=== PATIENT | female | born 1940 | race Caucasian/White ===

== ENCOUNTER 2021-04-04 14:10 | Inpatient (IN) | payer MEDICARE, OTHER ==
[2021-04-04] MEDS ORDERED: Ondansetron 4 MG/2 ML SDV IVPUSH ONE (14:23)
[2021-04-04] MEDS ORDERED: fentaNYL 50 MCG/ML SDV IVPUSH ONE (14:23)
[2021-04-04] MEDS ORDERED: Sodium Chloride 0.9% 1,000 ML IV ONE (14:23)
[2021-04-04] MEDS ORDERED: Sodium Chloride 0.9% 10 ML Syringe FLUSH PRN (14:23)
--- NOTE | 2021-04-04 14:30 | EDM.PDOC ---
ED HPI GENERAL MEDICAL PROBLEM - General Source of Information: Reports: Patient, Provider Middle Abdomen Pain Score (Numeric/FACES): 5 <Mili Richardson - Last Filed: 04/04/21 15:13> <Ana Maria Palafox - Last Filed: 04/04/21 17:16> - General Chief Complaint: Abdominal Pain Time Seen by Provider: 04/04/21 14:18 - History of Present Illness INITIAL COMMENTS - FREE TEXT/NARRATIVE: Maria E is a 80 y/o lady who was seen by Dr Tyson yesterday and today at [facility] and she was sent to the ER with persistent abdominal pain. Lans were negative yesterday in the clinic and an abdominal xray was also negative for any obstructive pattern. She started to feel ill Saturday night with diffuse abdominal pain, then she started have nausea and vomiting. Vomitus is more of a clear frothy substance. Not realyl eating much, only been drinking sips of water. She is starting to feel very weak. Had a small BM Saturday. Describes the pain as a "burning" and rates it 5/10 at this time. No fever. (Mili Richardson) - Related Data Allergies Allergy/AdvReac Type Severity Reaction Status Date / Time Penicillins Allergy Edema Verified 04/04/21 14:24 varenicline tartrate Allergy Nausea Verified 04/04/21 14:24 [From Chantix] Home Meds: Home Meds Albuterol [Ventolin HFA] 2 puff INH Q4H PRN 07/09/13 [History] Atenolol [Tenormin] 50 mg PO DAILY 07/09/13 [History] Cholecalciferol (Vitamin D3) [Vitamin D] 2,000 unit PO DAILY 07/09/13 [History] Cyanocobalamin (Vitamin B-12) [Vitamin B-12] 2,000 mcg PO DAILY 07/09/13 [History] Simvastatin [Zocor] 40 mg PO BEDTIME 07/09/13 [History] Psyllium Husk (With Sugar) [Metamucil Powder] 822 gm PO DAILY 04/04/21 [History] Review of Systems - Review of Systems Review Of Systems: See Below Constitutional: Reports: Weakness Eyes: Reports: No Symptoms Ears: Reports: No Symptoms Nose: Reports: No Symptoms Mouth/Throat: Reports: No Symptoms Respiratory: Reports: No Symptoms Cardiovascular: Reports: No Symptoms GI/Abdominal: Reports: Abdominal Pain, Decreased Appetite, Nausea, Vomiting Genitourinary: Reports: No Symptoms Musculoskeletal: Reports: No Symptoms Skin: Reports: No Symptoms Neurological: Reports: No Symptoms Psychiatric: Reports: No Symptoms <Mili Richardson - Last Filed: 04/04/21 15:13> ED EXAM, GENERAL - Physical Exam Exam: See Below General Appearance: Alert, WD/WN, No Apparent Distress (elderly female, appears to not feel well) Ears: Hearing Grossly Normal Nose: Normal Inspection Throat/Mouth: Normal Inspection, Normal Lips, Normal Voice Head: Atraumatic, Normocephalic Neck: Supple Respiratory/Chest: No Respiratory Distress, Lungs Clear, Chest Non-Tender Cardiovascular: Normal Peripheral Pulses, Regular Rate, Rhythm, No Murmur GI/Abdominal: Normal Bowel Sounds, Soft, No Distention, Tender (Diffusely tender) (Female) Exam: Deferred Rectal (Female) Exam: Deferred Extremities: Normal Inspection, Normal Range of Motion, Normal Capillary Refill Neurological: Alert, Oriented, CN II-XII Intact, No Motor/Sensory Deficits Skin Exam: Warm, Dry, Intact, Normal Color <Mili Richardson - Last Filed: 04/04/21 15:13> - Physical Exam Exam Limited By: No Limitations <Ana Maria Palafox - Last Filed: 04/04/21 17:16> Course <Mili Richardson - Last Filed: 04/04/21 15:13> <Ana Maria Palafox - Last Filed: 04/04/21 17:16> - Vital Signs Text/Narrative:: 1418 The patient was seen by the EDITORIAL MANAGER. Labs and CT ordered. IV fluids started and Fentanyl 25mcg IVP given for pain along with Zofran 4mg IVP. 1530 Report to Ana Maria Cole CNp at shift change. Labs and CT pending. (Mili Richardson) Last Recorded V/S: Last Vital Signs Temp 36.4 C 04/04/21 14:12 Pulse 60 04/04/21 14:12 Resp 20 04/04/21 14:12 BP 150/54 H 04/04/21 14:12 Pulse Ox 95 04/04/21 14:12 - Orders/Labs/Meds Orders: Active Orders 24 hr Category Date Time Status Admission Status [Patient Status] [ADT] Routine ADT 04/04/21 17:09 Ordered UA RFX MARGARITO AND CULT IF INDIC [URIN] Stat Lab 04/04/21 14:23 Ordered Sodium Chloride 0.9% [Saline Flush] Med 04/04/21 14:23 Active 10 ml FLUSH ASDIRECTED PRN Saline Lock Insert [OM.PC] Stat Oth 04/04/21 14:22 Ordered Medication Orders Sodium Chloride (Sodium Chloride 0.9% 10 Ml Syringe) 10 ml FLUSH ASDIRECTED PRN PRN Reason: Keep Vein Open Labs: Laboratory Tests 04/04/21 04/04/21 04/04/21 Range/Units 14:34 14:34 14:34 WBC 10.0 (4.0-10.0) x10^3/uL RBC 4.01 (4.00-5.50) x10^6/uL Hgb 12.1 (12.0-16.0) g/dL Hct 35.9 (33.0-47.0) % MCV 89.5 (78.0-93.0) fL MCH 30.2 (26.0-32.0) pg MCHC 33.7 (32.0-36.0) g/dL RDW Coeff of Meagna 14.3 (10.0-15.0) % Plt Count 182 (130-400) x10^3/uL Immature Gran % (Auto) 0.30 (0.00-0.43) % Neut % (Auto) 78.3 (50.0-80.0) % Lymph % (Auto) 7.1 L (25.0-50.0) % [place] % (Auto) 13.5 H (2.0-11.0) % Eos % (Auto) 0.5 (0.0-4.0) % Baso % (Auto) 0.3 (0.2-1.2) % Neut # (Auto) 7.8 H (1.8-7.7) x10^3/uL Lymph # (Auto) 0.7 L (1.0-4.8) x10^3/uL [place] # (Auto) 1.4 H (0.0-0.8) x10^3/uL Eos # (Auto) 0.1 (0.0-0.5) x10^3/uL Baso # (Auto) 0.0 (0.0-0.2) x10^3/uL Immature Gran # (Auto) 0.03 (0.00-0.07) x10^3/uL Sodium 137 (136-145) mmol/L Potassium 4.7 (3.5-5.1) mmol/L Chloride 100 (98-107) mmol/L Carbon Dioxide 26 (21-32) mmol/L Anion Gap 15.7 H (5-15) mmol/L BUN 27 H (7-18) mg/dL Creatinine 1.8 H (0.55-1.02) mg/dL Est Cr Clr Drug Dosing TNP Estimated GFR (MDRD) 27 Glucose 116 H (70-99) mg/dL Lactic Acid 3.0 H* (0.4-2.0) mmol/L Calcium 9.0 (8.5-10.1) mg/dL Corrected Calcium 9.7 (8.5-10.1) mg/dL Magnesium 2.0 (1.8-2.4) mg/dL Total Bilirubin 0.7 (0.2-1.0) mg/dL AST 74 H (15-37) U/L ALT 46 (14-59) U/L Alkaline Phosphatase 94 (46-116) U/L Total Protein 6.6 (6.4-8.2) g/dL Albumin 3.1 L (3.4-5.0) g/dL Globulin 3.5 Albumin/Globulin Ratio 0.89 Amylase 49 (25-115) U/L Lipase 255 (73-393) U/L SARS CoV-2 RNA Rapid LINDSEY (NEGATIVE) 04/04/21 Range/Units 14:44 WBC (4.0-10.0) x10^3/uL RBC (4.00-5.50) x10^6/uL Hgb (12.0-16.0) g/dL Hct (33.0-47.0) % MCV (78.0-93.0) fL MCH (26.0-32.0) pg MCHC (32.0-36.0) g/dL RDW Coeff of Meagan (10.0-15.0) % Plt Count (130-400) x10^3/uL Immature Gran % (Auto) (0.00-0.43) % Neut % (Auto) (50.0-80.0) % Lymph % (Auto) (25.0-50.0) % [place] % (Auto) (2.0-11.0) % Eos % (Auto) (0.0-4.0) % Baso % (Auto) (0.2-1.2) % Neut # (Auto) (1.8-7.7) x10^3/uL Lymph # (Auto) (1.0-4.8) x10^3/uL [place] # (Auto) (0.0-0.8) x10^3/uL Eos # (Auto) (0.0-0.5) x10^3/uL Baso # (Auto) (0.0-0.2) x10^3/uL Immature Gran # (Auto) (0.00-0.07) x10^3/uL Sodium (136-145) mmol/L Potassium (3.5-5.1) mmol/L Chloride (98-107) mmol/L Carbon Dioxide (21-32) mmol/L Anion Gap (5-15) mmol/L BUN (7-18) mg/dL Creatinine (0.55-1.02) mg/dL Est Cr Clr Drug Dosing Estimated GFR (MDRD) Glucose (70-99) mg/dL Lactic Acid (0.4-2.0) mmol/L Calcium (8.5-10.1) mg/dL Corrected Calcium (8.5-10.1) mg/dL Magnesium (1.8-2.4) mg/dL Total Bilirubin (0.2-1.0) mg/dL AST (15-37) U/L ALT (14-59) U/L Alkaline Phosphatase (46-116) U/L Total Protein (6.4-8.2) g/dL Albumin (3.4-5.0) g/dL Globulin Albumin/Globulin Ratio Amylase (25-115) U/L Lipase (73-393) U/L SARS CoV-2 RNA Rapid LINDSEY Negative (NEGATIVE) Meds: Medications Generic Name Dose Route Start Last Admin Trade Name Freq PRN Reason Stop Dose Admin Sodium Chloride 10 ml 04/04/21 14:23 Sodium Chloride 0.9% 10 Ml Syringe FLUSH ASDIRECTED PRN Keep Vein Open Discontinued Medications Generic Name Dose Route Start Last Admin Trade Name [place] PRN Reason Stop Dose Admin Fentanyl 25 mcg 04/04/21 14:23 04/04/21 14:41 Fentanyl 50 Mcg/Ml Sdv IVPUSH 04/04/21 14:24 25 mcg ONETIME ONE Administration Sodium Chloride 1,000 mls @ 999 mls/hr 04/04/21 14:23 04/04/21 14:39 Normal Saline IV 04/04/21 15:23 999 mls/hr ONETIME ONE Administration Ondansetron HCl 4 mg 04/04/21 14:23 04/04/21 14:39 Ondansetron 4 Mg/2 Ml Sdv IVPUSH 04/04/21 14:24 4 mg ONETIME ONE Administration - Re-Assessments/Exams Free Text/Narrative Re-Assessment/Exam: 04/04/21 15:49 Patient states that she is feeling better with the medication and fluids that are on board. Awaiting CT results. No further complaints or concerns (Ana Maria Palafox) Departure <Mili Richardson - Last Filed: 04/04/21 15:13> - Departure Time of Disposition: 17:00 Condition: Good <Ana Maria Palafox - Last Filed: 04/04/21 17:16> - Departure Disposition: Admitted As Inpatient 68 Clinical Impression: Bowel obstruction Qualifiers: Intestinal obstruction type: unspecified ileus Qualified Code(s): K56.7 - Ileus, unspecified - Discharge Information Referrals: Daniela Tyson MD [Primary Care Provider] - Forms: ED Department Discharge Sepsis Event Note (ED) - Focused Exam Vital Signs: Vital Signs Temp Pulse Resp BP Pulse Ox 04/04/21 14:12 36.4 C 60 20 150/54 H 95 <Ana Maria Palafox - Last Filed: 04/04/21 17:16> - My Orders Last 24 Hours: My Active Orders 04/04/21 17:09 Admission Status [Patient Status] [ADT] Routine - Assessment/Plan Last 24 Hours: My Active Orders 04/04/21 17:09 Admission Status [Patient Status] [ADT] Routine Assessment:: 1. small bowel obstruction 2. ileus 3. abdominal pain 4. dehydration (Ana Maria Palafox) Plan: 1. Labs completed in the ER. Results reviewed with the patient 2. CT scan completed in the ER. Results reviewed with the patient 3. IV initiated in the emergency department 4. IV fluids provided 5. Pain medication given for severe pain and discomfort- fentanyl 6. Zofran given in the ER to help with nausea 7. Consultation completed with- Dr. Tyson 8. Patient will be admitted to acute care for further medical management at this time. 9. Patient and nursing staff was updated regarding the plan of care 10. Patient and family are agreeable to the above plan of care 11. All questions and concerns were addressed with the patient and family prior to admit (Ana Maria Palafox)
[2021-04-04 14:57] LABS: ANION GAP 15.7 mmol/L (5-15); CHLORIDE,CL 100 mmol/L (98-107); SODIUM,NA 137 mmol/L (136-145)
--- NOTE | 2021-04-04 17:08 | CT ---
[id number] CT/CT Abdomen Pelvis WO IV Exam: CT Abdomen Pelvis WO IV Clinical Data: ABDOMINAL PAIN COMPARISON: NO PREVIOUS SIMILAR EXAM IS AVAILABLE FINDINGS: There is mild discoid atelectasis at the right lung base. There is apparent thickening of the wall of the stomach of uncertain significance This may simply represent incomplete distention There is stranding around both kidneys. There are diffuse atheromatous calcification There is no free fluid or free air. There is sludge and/or gallstones in the gallbladder The gallbladder is not distended The gallbladder wall is normal. There is moderate small bowel distention in the left lower quadrant within the pelvis. There is mild large bowel distention. The appendix is not definitely seen. There is no evidence of appendicitis There is no hydronephrosis. There are no radiopaque calculus of either kidney or ureter. The liver and spleen, adrenals and pancreas otherwise are unremarkable There are some limitations of the exam without IV contrast The pelvis shows no mass or adenopathy The uterus and ovaries appear to have been removed IMPRESSION: MILD SMALL BOWEL DISTENTION MILD LARGE BOWEL DISTENTION LIKELY THIS REPRESENTS AN ILEUS CONSIDER FOLLOW-UP STUDIES IF NEEDED Drake Thakkar MD 04/04/21 1676 Thank you for allowing us to participate in the care of your patient.
[2021-04-04] MEDS ORDERED: Ondansetron 4 MG/2 ML SDV IV PRN (17:41)
[2021-04-04] MEDS ORDERED: Acetaminophen 325 MG Tab PO PRN (17:41)
[2021-04-04] MEDS ORDERED: Ondansetron 4 MG Tab.DIS PO PRN (17:41)
[2021-04-04] MEDS ORDERED: Albuterol HFA 18 Gm Inhaler INH PRN (17:45)
[2021-04-04] MEDS ORDERED: Flumazenil 0.1 MG/ML 5 ML MDV IVPUSH PRN (17:45)
[2021-04-04] MEDS ORDERED: LORazepam 2 MG/ML SDV IVPUSH PRN (17:45)
[2021-04-04] MEDS: Enoxaparin 30 MG/0.3 ML Syringe SUBCUT SCH (18:47)
[2021-04-04] MEDS: Morphine 2 MG/ML SYRINGE IVPUSH PRN (18:56)
--- NOTE | 2021-04-04 20:27 | HP ---
CHIEF COMPLAINT: Abdominal pain. HISTORY OF PRESENT ILLNESS: The patient is a 80 -year-old female, who presents to the clinic for recurrent abdominal pain. She had been seen yesterday by MIA Dubose, for onset of abdominal pain that happened at 4 in the morning. Pain is lower abdomen, crampy, nonradiating. She can't tell what makes it better or worse. She did not eat any specific food. She was having foamy discharge from her mouth. She says she has not had diarrhea. No fever. She has felt a little bit chilled. She had a last bowel movement yesterday morning, but it was smaller and not normal for her. She has not ever had any pain like this before. She has not tried any heat or any Tylenol for the discomfort. When she was seen yesterday, she had an abdominal flat and upright x-ray that had shown nonspecific bowel gas pattern. Her white blood cell count had been 8.8, hemoglobin 12.3, platelets are 225. Her amylase had been run at [facility] and was presumably normal as well as lipase. The patient had been given a GI cocktail, which initially helped, but then she became more nauseated again. Her amylase was 38, lipase was 142, creatinine was noted to be slightly elevated at 1.32, GFR 39. The patient presents today with recurrent pain. She has not had anything to eat or drink today. She has been a little bit weak. She is quite worried about her blood pressure being elevated. MEDICATIONS: Her medications that she is currently on are: Atenolol 50 mg 1 pill daily, Zocor 40 mg 1 pill at bedtime, Incruse inhaler 1 puff daily, albuterol 2 puffs every 4 hours as needed, Metamucil 1 teaspoon daily as needed, vitamin D 2000 units 1 pill daily, vitamin B12 1000 mcg 2 tablets once a day. ALLERGIES: Penicillin, Chantix, and aspirin. PAST MEDICAL HISTORY: The patient has had hypertension, bilateral carotid artery stenosis, generalized anxiety. Ischemic colitis was found on 10/16/2016 after having acute GI bleed. She had been on aspirin; this was discontinued. She was encouraged to stop smoking. She has not had a colonoscopy. She has had a lung nodule noted on 12/27/2015 in her left upper lobe. Most recent CT scan was done on 07/28/2018 showed left upper lobe image 36, right upper lobe image 39, left upper lobe image 52, left upper lobe image 70, right middle lobe at 102, there are a few bilateral pulmonary nodules. Referral to [facility] was made. She has had emphysema. PFTs were done in 2004; FEV1 62%, improved to 72 after nebulizer, peak flow was noted to be 190 on 07/01/2013. She had hypercholesterolemia. Stage 3A chronic kidney disease since 2014. She has had an adenomatous colon polyp. Last colonoscopy was on 07/25/2018 with next colonoscopy to be in 3 years. She has had tricuspid valve disorder, mild regurgitation. She has had a ganglion cyst of her right wrist, esophageal reflux disease, hyperglycemia, irritable bowel syndrome, varicose veins of both lower legs. She has had chronic left ankle pain, hyponatremia, positive D-dimer on 02/07/2021, and she had a negative ultrasound. 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 She has had history of C difficile after dental infection in 2013. She smoked tobacco until 06/2020 and then she stopped cold turkey. She has had lipoma. She has had osteoporosis - senile, seasonal allergic rhinitis, vitamin B12 deficiency, vitamin D deficiency. PAST SURGICAL HISTORY: She has had SILVIA with BSO in 1970 for excessive bleeding and uterine prolapse. She had an incidental appendectomy in 1970. She has had carpal tunnel release on the right in 2002, carotid endarterectomy in 07/2011 on the left. Last colonoscopy in 2018. FAMILY MEDICAL HISTORY: Mother is ; she had hypertension, stroke, and heart attack. Father is . Sister has had heart attack, heart disease, rectal cancer, lung cancer, intestinal malrotation, coronary artery disease. Another sister has had rheumatoid arthritis. A brother has had heart failure. She has 2 daughters and 1 son. SOCIAL HISTORY: She smoked up until 05/2020; prior to that, she has smoked a pack a day for 55 years. She does not consume alcohol. 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 She has been . 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 REVIEW OF SYSTEMS: She has had some chronic left ankle pain and leg swelling over the summer; it is better. She does have some anxiety. No headaches. Occasional cough. No bruising on skin. No shortness of breath. No burning with urination. PHYSICAL EXAMINATION: Vital Signs: Weight was 132. Temperature is 97.5, pulse 59, respirations 20, saturations are 96%. General: The patient was alert. Skin: [place], warm, and dry. HEENT: Pharynx is slightly dry. Heart: Regular rate and rhythm. Lungs: Clear to auscultation. Abdomen: Reveals reduced bowel sounds. Her abdomen is slightly distended, but soft. There is mild diffuse tenderness. No guarding. No rebound. Lower Extremities: No edema. Psychiatric: Her mood is slightly anxious. Neuro: She moves all extremities symmetric. She walks unassisted. IMAGING: Abdominal flat and upright done in the clinic show a fairly extensive dilation of her large bowel. There are air-fluid loops of mildly prominent large bowel. No disproportionate small bowel to suggest obstructive process. No free air noted. Degenerative changes noted of hip and spine. The patient was seen at [facility] ER and an abdominal CT came back being done that showed mild discoid atelectasis of right lung. There is apparent thickening of wall of stomach of uncertain significance, may represent simple distention. There is stranding around both kidneys. There is diffuse atheromatous calcification. No free air. There is sludge and/or gallstone in the gallbladder. Gallbladder is not distended. There is moderate small bowel distention in the left upper quadrant within the pelvis. There is mild large bowel distention. Appendix is not seen. No hydronephrosis. Liver, spleen, pancreas are unremarkable. No mass or adenopathy noted in the pelvis. Uterus is absent. LABORATORY DATA: Lab work that was done at [facility] shows white blood cell count 10.0, hemoglobin 12.1, platelet count 182 with 73 segs, 7 lymphocytes, 13 monos. Sodium 137, potassium 4.7, BUN 27, creatinine 1.8, GFR 27, glucose 116, lactic acid 3.0, magnesium 2.0, AST 74, ALT 46, albumin 3.1, amylase 49, lipase 255. COVID test was negative. IMPRESSION: 1. Acute large bowel obstruction. 2. Dehydration, mild. 3. Abdominal pain. 4. Elevated liver function tests. 5. Lactic acid elevated. 6. BIliary sludge/gallstones. PLAN: The patient will be admitted to acute care. She will be given IV fluids. She will have an NG decompression done. We will recheck her lactic acid as well as a procalcitonin level. We will check a urine on the patient to make sure there is no process going on with the urine. The patient is code level 1. We will place her on Lovenox for DVT prophylaxis. If her health would deteriorate, she would need referral to a place that has surgical capabilities; either [place], which is currently full today versus [place] versus [facility]. It is expected that the patient should recover from her illness hopefully with conservative therapy and the intent is that she would be discharged home. Right now, we will hold any of her vitamins, but will continue with her blood pressure medication as well as we will offer her parenteral pain control with morphine as well as nausea treatment with Zofran. GM04/04/2021 18:06:36 MODL: 04/04/2021 20:19:29 /[id number] MTDD
[2021-04-04] MEDS ORDERED: Sodium Chloride 0.9% 1,000 ML IV SCH (21:15)
[2021-04-04] MEDS: Dextrose 5%-Lactated Ringers 1,000 ML IV SCH (21:36)
[2021-04-05] MEDS: Pantoprazole 40 MG Vial IVPUSH SCH ×2 (05:21→07:52)
[2021-04-05 07:46] LABS: ANION GAP 12.3 mmol/L (5-15)
[2021-04-05] MEDS: Atenolol 50 MG Tab PO SCH (07:53)
[2021-04-05] MEDS: Enoxaparin 30 MG/0.3 ML Syringe SUBCUT SCH (07:57)
--- NOTE | 2021-04-05 07:57 | CR ---
[id number] RAD/RAD Chest PA or AP 1V EXAM: FRONTAL CHEST INDICATION: Identify if tube is coiled. COMPARISON: None. DISCUSSION: A limited view of the lower chest and upper abdomen was performed for nasogastric tube placement. Tube tip positioned in the expected location of the mid gastric body. Gas-filled mildly dilated large bowel loops are noted in the upper abdomen. IMPRESSION: 1. Nasogastric tube tip gastric body. Faustino Roberson MD 04/05/21 0756 Thank you for allowing us to participate in the care of your patient.
[2021-04-05] MEDS: UMECLIDINIUM INH SCH (07:58)
[2021-04-05] MEDS: Dextrose 5%-Lactated Ringers 1,000 ML IV SCH (08:00)
--- NOTE | 2021-04-05 09:20 | PN ---
Progress Note for ISAURA MUIR Date: 04/05/2021 Room #: VM.211 SUBJECTIVE: Patient was admitted yesterday with a bowel obstruction, an NG tube was placed. She comments that her pain is much better. It was noted that the NG return now has gotten a little bit more bloody colored. She also was having a cough and oxygen did have to be started. Patient does have a history of COPD. Patient has just had ice chips. OBJECTIVE: Vital Signs: Her temperature is 35.9, pulse 85, blood pressure is 148/69, saturations are 94 on 3 L. Heart: Regular rate and rhythm. Lungs: Have diminished breath sounds on bases. Abdomen: Has no bowel sounds. It is soft, nontender. NG tube has reddish brown substance. LABORATORY DATA: Her lab today shows her hemoglobin has dropped to 10.5, which may be somewhat dilutional from 12.1 on admission; white blood cell count is slightly elevated at 12.4; platelets are 139. She has 78 segs, 7 lymphs, immature cells. Sodium is 137; potassium 4.3; creatinine is 1.7; GFR is 29; BUN is 27, the same as yesterday. Her lactic acid was slightly elevated on admission at 3.0, but then did go down to 2.1. Magnesium was 2.0 on admission. AST went from 74 down to 48. Her albumin is 2.5. Her amylase and lipase on admission were normal. Her procalcitonin was 0.5 yesterday, then went up to 0.61 with normal being 0.5 or less. Urinalysis was obtained, which showed urine was very concentrated, greater than 1.030 specific gravity with 15 ketones, trace blood, no sign of infection. COVID negative. IMPRESSION: 1. Acute bowel obstruction. 2. Gallstones. 3. Some heme-positive gastrointestinal return. 4. Chronic obstructive pulmonary disease. 5. Hypoxemia, mild. PLAN: We will repeat abdominal flat and upright x-rays. We will continue NG suction. If chest x-ray shows pneumonitis, we would need to add an antibiotic on board. If the patient's bowel functions does not return tomorrow, she would need transfer to [facility] if surgeon is available. GM04/05/2021 08:38:34 MODL: 04/05/2021 09:12:31 /[id number] STORM
--- NOTE | 2021-04-05 09:35 | CR ---
[id number] RAD/RAD Abdomen 3V Exam: RAD Abdomen 3V Clinical Data: BOWEL OBSTRUCTION COMPARISON: CORRELATION IS MADE WITH YESTERDAY'S CAT SCAN FINDINGS: An NG tube has been placed in the stomach. The lungs are clear but hyperaerated The cardiomediastinal contour is moderately enlarged There is moderate large bowel distention There is no significant small bowel distention IMPRESSION: NG TUBE IN STOMACH MODERATE ILEUS Drake Thakkar MD 04/05/21 0934 Thank you for allowing us to participate in the care of your patient.
--- NOTE | 2021-04-05 12:18 | PCM.SN.2 ---
- Free Text/Narrative Note: reviewed follow up xray of flat and upright with oncall surgeon at [facility], Dr Merritt. He states they are ok to still observe with NG. If output doesn't increase or return of bowel function, then she'll need to go to [facility] for an UGI with small bowel follow through. Currently they are not accepting surgical pts, but may be able to tomorrow .Call was coordinated through [facility] [employer].
[2021-04-06] MEDS: Dextrose 5%-Lactated Ringers 1,000 ML IV SCH ×2 (00:49→08:42)
[2021-04-06 08:00] LABS: ANION GAP 10.7 mmol/L (5-15)
[2021-04-06] MEDS: Enoxaparin 30 MG/0.3 ML Syringe SUBCUT SCH (08:30)
[2021-04-06] MEDS: UMECLIDINIUM INH SCH (08:30)
[2021-04-06] MEDS: Atenolol 50 MG Tab PO SCH (08:30)
[2021-04-06] MEDS: Pantoprazole 40 MG Vial IVPUSH SCH (08:30)
[2021-04-06] MEDS: Morphine 2 MG/ML SYRINGE IVPUSH PRN (08:33)
--- NOTE | 2021-04-06 09:59 | CR ---
[id number] RAD/RAD Abd Flat and Upright 2V EXAM: RAD Abd Flat and Upright 2V INDICATION: ABD DISTENSION COMPARISON: Yesterday Discussion/Impression: NG tube in place. Colonic gaseous distension. Unobstructed small bowel gas pattern. Bjorn Falcon MD 04/06/21 0957 Thank you for allowing us to participate in the care of your patient.
--- NOTE | 2021-04-06 10:00 | PN ---
Progress Note for ISAURA MUIR Date: 04/06/2021 Room #: VM.211 SUBJECTIVE: Patient is feeling about the same. She really does not have much for abdominal pain, but also does not feel super perky and normal. She has not passed any air out her bottom. I had reviewed her x-rays yesterday with on-call surgeon, which was somewhat concerning about the amount of distention. OBJECTIVE: Vital Signs: Her weight today is 58.6, which is down 0.3 kg from yesterday. Her pulse is 82, blood pressure is 117/63. Her saturations are 95 on 2.5 L. Heart: Regular rate. Lungs: Clear to auscultation. Abdomen: Has rare bowel sounds present. It is soft. It is slightly tender in epigastric area. LABORATORY DATA: Her white blood cell count is improved to 10.6, hemoglobin is stable at 10.6, platelets are 129, 78 segs, 8 lymphs. Sodium 136, potassium 3.7, creatinine 1.5 which is improved. GFR is 34. Glucose 127. Her AST is improved to 40 from 74 on admission. Her CRP has gone up to 23.1. Her albumin is 2.1. Her amylase is 22, lipase is down to 71. Procalcitonin has stayed the same at 0.61. IMPRESSION: 1. Bowel obstruction. 2. Dehydration, slightly improved. 3. Chronic obstructive pulmonary disease. 4. Mild hypoxemia related to chronic obstructive pulmonary disease. 5. Gallstones noted. 6. Elevated LFTs. 7. Elevated CRP. 8. Anxiety disorder. PLAN: We will repeat x-rays this morning. If she has not improved at all, then she would need consideration for transfer where there are surgical services. We will offer an albuterol neb. We will also try to get patient up ambulating as well. GM04/06/2021 09:14:11 MODL: 04/06/2021 09:51:49 /[id number]
[2021-04-06] MEDS: Albuterol/Ipratropium 3.0-0.5 MG/3 ML Neb Soln NEB SCH ×3 (10:39→14:49)
--- NOTE | 2021-04-06 11:10 | PCM.SN.2 ---
- Free Text/Narrative Note: Did speak with Dr Merritt, inside sales person surgeon at [facility], and he did agree to accept pt, after reviewing her abd xray from today. Pt is ok for transfer. A bed won't be available at [facility] for several hours. She'll need to go by [facility].
--- NOTE | 2021-04-06 23:21 | DISCH ---
PRIMARY DIAGNOSES: 1. Bowel obstruction, presumed large bowel obstruction. 2. Dehydration, improved. 3. Chronic obstructive pulmonary disease. 4. Mild hypoxemia, which is new for the patient. 5. Cholelithiasis. 6. Elevated liver function tests. 7. Elevated C-reactive protein. 8. Chronic anxiety disorder. SUMMARY OF ADMIT HISTORY AND PHYSICAL: The patient presented to the emergency room with persistent abdominal pain. She had abdominal pain the day of presentation to the emergency room, it was felt to be nonspecific; however, she says the pain was getting worse, not wanting to eat. The patient needed to have a CT scan to rule out any sort of mass. She had been vomiting frothy material and had not been drinking much for water. She had had a normal BM the day prior to admission. She had some burning in her abdominal area. Initial blood pressure showed a blood pressure of 150/54, pulse 60, respirations 20, sats 95%. Her lab work showed white blood cell count 10.0, hemoglobin 12.1, platelets 182 with 78 segs, 7 lymphs, 13 monocytes, sodium 137, potassium 4.7, creatinine 1.8 which is elevated, BUN 27, glucose 116, lactic acid 3.0, magnesium 2.0, AST 74, ALT 46, total bilirubin 0.7, alkaline phosphatase 94, albumin 3.1, amylase 49, lipase 255. COVID test was negative. CT scan of abdomen had shown bowel obstruction and cholelithiasis; no evidence of abscess; mild atelectasis of lungs on the right base; atheromatous calcification, diffuse; stranding was noted around the kidneys as well as a mild small bowel distention, mild large bowel distention, most likely an ileus. SUMMARY OF HOSPITAL COURSE: The patient was admitted to acute care. NG tube was placed for decompression; however, she had very poor return out of her NG tube. Lab was followed and her white blood cell count increased to 12.4 on 04/05 and hemoglobin dropped to 10.5. Her creatinine slightly improved to 1.7. Lactic acid improved to 2.1 after serial exam. AST improved to 48. CRP was noted to be 0.2 and albumin 2.5. Procalcitonin initially was 0.05 and then had increased to 0.61. Urine was concentrated dark. I did confer with on-call surgeon. There were no surgical beds available and it was felt okay to observe the patient for another 24 hours. By 04/06, the patient's pain had improved; however, her x-ray had worsened with more air. She was not passing any gas per rectum. Her NG output was noted to be very amenable. Her lab work had shown now that her CRP had gone up to 23.1. Her white blood cell count had dropped to 10.7, hemoglobin was stable at 10.6, platelets were 128. Sodium was 136, potassium 3.7, creatinine had improved to 1.5, GFR was 34, BUN was 26, which was stable. ALT had improved to 48. To note, the patient started to become hypoxic, possibly because the of NG tube and not moving around as much, so she did require to be started on oxygen. Also, DuoNebs were started to help with her lung function. To note, a bed was available to transfer the patient to on 04/06/2021 in the afternoon. MEDICATIONS: Her medications at the time of transfer are: Vitamin D 2000 units daily, vitamin B12 2000 mcg daily, albuterol 2 puffs q.4 hours p.r.n., atenolol 50 mg daily, simvastatin 40 mg at bedtime, Metamucil powder, Lorazepam 0.5 mg IV q.4 hours p.r.n., DuoNeb q.i.d., Lovenox was started while she was in the hospital 30 mg subcu daily, she has been given morphine 2 mg IV q.2 hours p.r.n., Incruse inhaler 1 puff daily, Protonix 40 mg IV daily due to blood- tinged fluid, Romazicon p.r.n. for over-sedation, Tylenol 325 mg 2 pills q.4 hours p.r.n., Zofran 4 mg q.4 hours p.r.n. The patient is full code level status at the time of discharge. The patient is being sent because of the need for surgical consult as well as further additional advanced x-ray studies, which are not available to be done here. The patient was agreeable to transfer. 04/06/2021 17:14:29 MODL: 04/06/2021 23:14:16 /[id number] [facility] SERVICES[facility]
== END 2021-04-06 15:55 | disposition short-term general hospital (02) | DRG 389 ==
LOC: VM.ED 14:10 → VM.MS 17:09
PROVIDERS: ADMIT Family Medicine; ATTEND Family Medicine
PROC: 0D9670Z Drainage of Stomach with Drainage Device, Via Natural or Artificial Opening (ICD-10-PCS; principal; 2021-04-04)
DX: K56.609 Unspecified intestinal obstruction, unspecified as to partial versus complete obstruction (principal); E87.2 Acidosis; K56.7 Ileus, unspecified; E86.0 Dehydration; J44.9 Chronic obstructive pulmonary disease, unspecified; R09.02 Hypoxemia; K80.20 Calculus of gallbladder without cholecystitis without obstruction; R74.8 Abnormal levels of other serum enzymes; Z20.822 Contact with and (suspected) exposure to COVID-19; I10 Essential (primary) hypertension; I65.23 Occlusion and stenosis of bilateral carotid arteries; F41.1 Generalized anxiety disorder; F17.210 Nicotine dependence, cigarettes, uncomplicated; E78.00 Pure hypercholesterolemia, unspecified; N18.31 Chronic kidney disease, stage 3a; K21.9 Gastro-esophageal reflux disease without esophagitis; I83.93 Asymptomatic varicose veins of bilateral lower extremities; M81.0 Age-related osteoporosis without current pathological fracture; E55.9 Vitamin D deficiency, unspecified; E53.8 Deficiency of other specified B group vitamins; Z98.890 Other specified postprocedural states; Z79.899 Other long term (current) drug therapy; Z88.0 Allergy status to penicillin; Z88.6 Allergy status to analgesic agent; Z88.8 Allergy status to other drugs, medicaments and biological substances
CPT/HCPCS: 36415; 71045; 74019; 74022; 74176; 80053; 81001; 82150; 83605; 83690; 83735; 84145; 85025; 86140; 94640; 94760; 96374; 96375; 99284; 99285-25; A9270-GY; C9113; J1650; J2060; J2270; J2405; J3010; J7030; J7121; J7620-GY; U0002

== ENCOUNTER 2021-04-15 16:28 | Emergency (ER) | payer MEDICARE, OTHER ==
[2021-04-15] MEDS ORDERED: Sodium Chloride 0.9% 10 ML Syringe FLUSH PRN (16:43)
--- NOTE | 2021-04-15 16:58 | EDM.PDOC ---
ED HPI GENERAL MEDICAL PROBLEM - General Chief Complaint: Neuro Symptoms/Deficits Time Seen by Provider: 04/15/21 16:28 Source of Information: Reports: EMS, Police History Limitations: Reports: No Limitations - History of Present Illness INITIAL COMMENTS - FREE TEXT/NARRATIVE: Pt. presents to ER via EMS as a stroke code. Police were summoned for a welfare check family had not been able to reach the patient by phone since 9 PM last night. Pt. apparently left [facility] AMA last week after being treated for a bowel obstruction. Family states that they were not able to reach the patient this AM or afternoon and called the police who had to kick in the door to reach patient. Daughter did presents to ER eventually and related that pts. home was examined, and it appeared that the patient had been up and around this AM, letting her dog out, feeding it, etc. Still, unknown specifically how long she was down. EMS was summoned. On their arrival, pt. was not using her R side and had no license registration examiner strength in the R upper extremity. She had pronator drift on the R side has well, but was able to lift R leg. To note, this improved on arrival to ER. Pt. has been lying on her R side. Pt. gaze shifted to left. Only able to answer a few "yes" and "no" questions. She was not able to relate when she fell, but did relate that she was on the floor all night. Daughter, Isa, relates that she has no history of prior cerebrovascular disease. Pt. lives by herself here in [place], and normally does all of her own ADLs and is ambulatory. Onset Date: 04/14/21 - Related Data Allergies Allergy/AdvReac Type Severity Reaction Status Date / Time Penicillins Allergy Edema Verified 04/15/21 17:45 varenicline tartrate Allergy Nausea Verified 04/15/21 17:45 [From Chantix] Home Meds: Home Meds Albuterol [Ventolin HFA] 2 puff INH Q4H PRN 07/09/13 [History] Atenolol [Tenormin] 50 mg PO DAILY 07/09/13 [History] Cholecalciferol (Vitamin D3) [Vitamin D3] 2,000 unit PO DAILY 07/09/13 [History] Cyanocobalamin (Vitamin B-12) [Vitamin B-12] 2,000 mcg PO DAILY 07/09/13 [History] Simvastatin [Zocor] 40 mg PO BEDTIME 07/09/13 [History] Psyllium Husk (With Sugar) [Metamucil Powder] 822 gm PO DAILY 04/04/21 [History] Acetaminophen [Tylenol] 650 mg PO Q4H PRN tablet 04/06/21 [Rx] Albuterol/Ipratropium [DuoNeb 3.0-0.5 MG/3 ML] 3 ml NEB QIDRT neb 04/06/21 [Rx] Enoxaparin [Lovenox] 30 mg SUBCUT DAILY syringe 04/06/21 [Rx] LORazepam [Ativan] 0.5 mg IVPUSH Q4H PRN vial 04/06/21 [Rx] Morphine 2 mg IVPUSH Q2H PRN syringe 04/06/21 [Rx] Non-Formulary Medication [NF Drug] 0 each INH DAILY each 04/06/21 [Rx] Ondansetron [Zofran] 4 mg IV Q4H PRN vial 04/06/21 [Rx] Pantoprazole [ProTONIX IV] 40 mg IVPUSH DAILY vial 04/06/21 [Rx] flumazeniL [Romazicon] 0.2 mg IVPUSH ASDIRECTED PRN mdv 04/06/21 [Rx] Past Medical History - Past Health History Medical/Surgical History: Denies Medical/Surgical History HEENT History: Reports: None Cardiovascular History: Reports: High Cholesterol, Hypertension, Other (See Below) Other Respiratory History: emphysema Gastrointestinal History: Reports: GERD, Inflammatory Bowel Disease 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 Cortisone injection received Feb 2021. Psychiatric History: Reports: Anxiety - Past Surgical History Cardiovascular Surgical History: Reports: Carotid Endarterectomy GI Surgical History: Reports: Appendectomy Musculoskeletal Surgical History: Reports: Ganglion Cyst Social & Family History - Caffeine Use Caffeine Use: Reports: Coffee Caffeine Use Comment: 2 cups/day ED ROS GENERAL - Review of Systems Review Of Systems: Unable To Obtain (Confused, ROS largely unobtainable. See HPI.) Reason Not Obtained: confusion ED EXAM, GENERAL - Physical Exam Exam: See Below Exam Limited By: No Limitations General Appearance: Alert, Mild Distress, Cachetic Eye Exam: Bilateral Eye: Normal Fundi, PERRL, Other (Unable to follow finger) Nose: Normal Inspection, Normal Mucosa Throat/Mouth: Normal Inspection, Normal Lips, Normal Teeth, Normal Oropharynx, No Airway Compromise Head: Atraumatic, Normocephalic Neck: Normal Inspection, Supple, Non-Tender, Full Range of Motion Respiratory/Chest: No Respiratory Distress, Lungs Clear, Normal Breath Sounds, No Accessory Muscle Use, Chest Non-Tender Cardiovascular: Normal Peripheral Pulses, Regular Rate, Rhythm, No Edema, No JVD, No Murmur Peripheral Pulses: 4+: Radial (L), Posterior Tibial (L), Posterior Tibial (R) GI/Abdominal: Soft, Non-Tender, No Distention, No Mass (Female) Exam: Deferred Rectal (Female) Exam: Deferred Extremities: Other (numerous small skin erosions to lateral aspect of R ankle and R elbow, consistent with lying on ground.) Psychiatric: Anxious Skin Exam: Warm, Dry, Pallor #1 Interpretation Rhythm: NSR Gibbs: Normal P-Wave: Present QRS: Normal ST-T: Normal QT: Normal Course - Orders/Labs/Meds Orders: Active Orders 24 hr Category Date Time Status CULTURE BLOOD [BC] Stat Lab 04/15/21 16:52 Received CULTURE BLOOD [BC] Stat Lab 04/15/21 17:00 Results DRUG SCREEN, URINE [URCHEM] Stat Lab 04/15/21 17:40 Received UA RFX MARGARITO AND CULT IF INDIC [URIN] Stat Lab 04/15/21 17:40 Received Sodium Chloride 0.9% [Normal Saline] 1,000 ml Med 04/15/21 17:30 Active IV ASDIRECTED Sodium Chloride 0.9% [Saline Flush] Med 04/15/21 16:43 Active 10 ml FLUSH ASDIRECTED PRN Blood Culture x2 Reflex Set [OM.PC] Stat Oth 04/15/21 16:44 Ordered Peripheral IV Insertion Adult [OM.PC] Routine Oth 04/15/21 16:44 Ordered Medication Orders Sodium Chloride (Normal Saline) 1,000 mls @ 1,000 mls/hr IV ASDIRECTED DAVID Sodium Chloride (Sodium Chloride 0.9% 10 Ml Syringe) 10 ml FLUSH ASDIRECTED PRN PRN Reason: Keep Vein Open Labs: Laboratory Tests 04/15/21 04/15/21 04/15/21 Range/Units 16:52 16:52 16:52 WBC 20.9 H* (4.0-10.0) x10^3/uL RBC 4.46 (4.00-5.50) x10^6/uL Hgb 13.0 D (12.0-16.0) g/dL Hct 38.3 (33.0-47.0) % MCV 85.9 D (78.0-93.0) fL MCH 29.1 (26.0-32.0) pg MCHC 33.9 (32.0-36.0) g/dL RDW Coeff of Meagan 13.5 (10.0-15.0) % Plt Count 382 D (130-400) x10^3/uL Add Manual Diff Yes Neutrophils % (Manual) 87 H (50-80) % Band Neutrophils % 1 (0-6) % Lymphocytes % (Manual) 4 L (25-50) % Monocytes % (Manual) 8 (2-11) % Absolute Neutrophils 18.4 H (1.8-7.7) x10^3/uL Lymphocytes # (Manual) 0.8 L (1.0-4.8) x10^3/uL Monocytes # (Manual) 1.7 H (0.0-0.8) x10^3/uL Hypersegmented Neuts Occasional H Platelet Estimate Adequate PT 12.3 (9.9-12.5) SEC INR 1.1 L (2.0-3.5) APTT (25.6-32.8) SEC Sodium 132 L (136-145) mmol/L Potassium 3.9 (3.5-5.1) mmol/L Chloride 93 L (98-107) mmol/L Carbon Dioxide 27 (21-32) mmol/L Anion Gap 15.9 H (5-15) mmol/L BUN 23 H (7-18) mg/dL Creatinine 1.6 H (0.55-1.02) mg/dL Est Cr Clr Drug Dosing TNP Estimated GFR (MDRD) 31 Glucose 119 H (70-99) mg/dL Lactic Acid (0.4-2.0) mmol/L Calcium 9.1 (8.5-10.1) mg/dL Corrected Calcium 10.1 (8.5-10.1) mg/dL Phosphorus 2.6 (2.6-4.7) mg/dL Magnesium 2.0 (1.8-2.4) mg/dL Total Bilirubin 0.7 (0.2-1.0) mg/dL AST 60 H (15-37) U/L ALT 45 (14-59) U/L Alkaline Phosphatase 108 (46-116) U/L Creatine Kinase (26-192) U/L Troponin I High Sens 123 H* (<=51) ng/L Total Protein 7.2 (6.4-8.2) g/dL Albumin 2.8 L (3.4-5.0) g/dL Globulin 4.4 Albumin/Globulin Ratio 0.64 04/15/21 04/15/21 04/15/21 Range/Units 16:52 16:52 16:52 WBC (4.0-10.0) x10^3/uL RBC (4.00-5.50) x10^6/uL Hgb (12.0-16.0) g/dL Hct (33.0-47.0) % MCV (78.0-93.0) fL MCH (26.0-32.0) pg MCHC (32.0-36.0) g/dL RDW Coeff of Meagan (10.0-15.0) % Plt Count (130-400) x10^3/uL Add Manual Diff Neutrophils % (Manual) (50-80) % Band Neutrophils % (0-6) % Lymphocytes % (Manual) (25-50) % Monocytes % (Manual) (2-11) % Absolute Neutrophils (1.8-7.7) x10^3/uL Lymphocytes # (Manual) (1.0-4.8) x10^3/uL Monocytes # (Manual) (0.0-0.8) x10^3/uL Hypersegmented Neuts Platelet Estimate PT (9.9-12.5) SEC INR (2.0-3.5) APTT 23.6 L (25.6-32.8) SEC Sodium (136-145) mmol/L Potassium (3.5-5.1) mmol/L Chloride (98-107) mmol/L Carbon Dioxide (21-32) mmol/L Anion Gap (5-15) mmol/L BUN (7-18) mg/dL Creatinine (0.55-1.02) mg/dL Est Cr Clr Drug Dosing Estimated GFR (MDRD) Glucose (70-99) mg/dL Lactic Acid 1.9 (0.4-2.0) mmol/L Calcium (8.5-10.1) mg/dL Corrected Calcium (8.5-10.1) mg/dL Phosphorus (2.6-4.7) mg/dL Magnesium (1.8-2.4) mg/dL Total Bilirubin (0.2-1.0) mg/dL AST (15-37) U/L ALT (14-59) U/L Alkaline Phosphatase (46-116) U/L Creatine Kinase 218 H* (26-192) U/L Troponin I High Sens (<=51) ng/L Total Protein (6.4-8.2) g/dL Albumin (3.4-5.0) g/dL Globulin Albumin/Globulin Ratio Meds: Medications Generic Name Dose Route Start Last Admin Trade Name Freq PRN Reason Stop Dose Admin Sodium Chloride 1,000 mls @ 1,000 mls/hr 04/15/21 17:30 Normal Saline IV ASDIRECTED DAVID Sodium Chloride 10 ml 04/15/21 16:43 Sodium Chloride 0.9% 10 Ml Syringe FLUSH ASDIRECTED PRN Keep Vein Open Discontinued Medications Generic Name Dose Route Start Last Admin Trade Name Freq PRN Reason Stop Dose Admin Sodium Chloride 500 mls @ 999 mls/hr 04/15/21 17:12 04/15/21 16:47 Normal Saline IV 04/15/21 17:42 999 mls/hr ONETIME ONE Administration - Radiology Interpretation Free Text/Narrative:: L occipital hypodensity, consistent with late acute or subacute infarct. Departure - Departure Time of Disposition: 18:00 Disposition: DC/Tfer to Acute Hospital 02 Clinical Impression: CVA (cerebral vascular accident), Rhabdomyolysis - Discharge Information Referrals: Daniela Tyson MD [Primary Care Provider] - Forms: ED Department Discharge - Problem List Review Problem List Initiated/Reviewed/Updated: Yes - My Orders Last 24 Hours: My Active Orders 04/15/21 16:43 Sodium Chloride 0.9% [Saline Flush] 10 ml FLUSH ASDIRECTED PRN 04/15/21 16:44 Blood Culture x2 Reflex Set [OM.PC] Stat Peripheral IV Insertion Adult [OM.PC] Routine 04/15/21 16:52 CULTURE BLOOD [BC] Stat 04/15/21 17:00 CULTURE BLOOD [BC] Stat 04/15/21 17:30 Sodium Chloride 0.9% [Normal Saline] 1,000 ml IV ASDIRECTED 04/15/21 17:40 DRUG SCREEN, URINE [URCHEM] Stat UA RFX MARGARITO AND CULT IF INDIC [URIN] Stat - Assessment/Plan Last 24 Hours: My Active Orders 04/15/21 16:43 Sodium Chloride 0.9% [Saline Flush] 10 ml FLUSH ASDIRECTED PRN 04/15/21 16:44 Blood Culture x2 Reflex Set [OM.PC] Stat Peripheral IV Insertion Adult [OM.PC] Routine 04/15/21 16:52 CULTURE BLOOD [BC] Stat 04/15/21 17:00 CULTURE BLOOD [BC] Stat 04/15/21 17:30 Sodium Chloride 0.9% [Normal Saline] 1,000 ml IV ASDIRECTED 04/15/21 17:40 DRUG SCREEN, URINE [URCHEM] Stat UA RFX MARGARITO AND CULT IF INDIC [URIN] Stat Plan: Pt. was accepted by Dr. Vargas. [facility] was unable to fly. Nearest [facility] ground ambulance is currently on the way back to [place] from a transfer to [place]. She will be transported via [facility] ground ambulance. Will continue IV normal saline during transport.
--- NOTE | 2021-04-15 17:08 | CT ---
[id number] CT/CT Head WO IV EXAM: CT Head WO IV CLINICAL DATA: RIGHT SIDED WEAKNESS, APHASIA. COMPARISON STUDY: None FINDINGS: Geographic area of hypodensity in the left occipital lobe obscuring jean-white matter differentiation. Findings are consistent with infarction. This is likely late acute to early subacute. No evidence of hemorrhagic conversion. Findings are superimposed on mild changes of chronic small vessel disease throughout remainder of both cerebral hemispheres. No extra-axial fluid collection. No hydrocephalus. MRI of the brain is recommended to better evaluate these findings. Bjorn Falcon MD 04/15/21 [id number] Thank you for allowing us to participate in the care of your patient.
[2021-04-15] MEDS ORDERED: Sodium Chloride 0.9% 500 ML IV ONE (17:12)
[2021-04-15] MEDS ORDERED: Sodium Chloride 0.9% 1,000 ML IV SCH (17:30)
[2021-04-15 17:34] LABS: CHLORIDE,CL 93 mmol/L (98-107); SODIUM,NA 132 mmol/L (136-145)
[2021-04-15 17:35] LABS: ANION GAP 15.9 mmol/L (5-15)
[2021-04-15 17:54] LABS: BARBITURATE SCREEN,URINE NEGATIVE (NEGATIVE); BENZODIAZEPINES SCREEN,URINE NEGATIVE (NEGATIVE); BUPRENORPHINE SCREEN,URINE NEGATIVE (NEGATIVE); METHAMPHETAMINE SCREEN, URINE NEGATIVE (NEGATIVE); THC SCREEN,URINE 50 NG/ML NEGATIVE (NEGATIVE)
== END 2021-04-15 18:22 | disposition short-term general hospital (02) ==
LOC: VM.ED 16:28
DX: I63.9 Cerebral infarction, unspecified (principal); M62.82 Rhabdomyolysis; E78.00 Pure hypercholesterolemia, unspecified; I10 Essential (primary) hypertension; K21.9 Gastro-esophageal reflux disease without esophagitis; Z79.899 Other long term (current) drug therapy; Z88.0 Allergy status to penicillin; Z88.8 Allergy status to other drugs, medicaments and biological substances
CPT/HCPCS: 36415; 70450; 80053; 80305-QW; 81001; 82550; 83605; 83735; 84100; 84484; 85025; 85610; 85730; 87040; 93005; 99285-25; J7030